=== PATIENT | male | born 1970 | race American Indian/Alaskan Native ===

== ENCOUNTER 2017-08-30 14:54 | Inpatient (IN) | payer OTHER ==
[2017-08-30 15:22] LABS: Basophils % (Auto) 0.8 % (0.0-1.8); Eosinophils # (Auto) 0.1 K/mm3 (0.0-0.4); Eosinophils % (Auto) 2.3 % (0.0-4.3); Hematocrit 43.7 % (35.5-45.6); Hemoglobin 14.6 gm/dl (11.8-15.2); Lymphocytes # (Auto) 1.2 K/mm3 (1.2-5.4); Lymphocytes % (Auto) 30.8 % (13.4-35.0); Mean Corpuscular HGB Conc 33 % (32-34); Mean Corpuscular Hemoglobin 29 pg (28-32); Mean Corpuscular Volume 86 fl (84-94); Monocytes # (Auto) 0.4 K/mm3 (0.0-0.8); Monocytes % (Auto) 10.3 % (0.0-7.3); Platelet Count 177 K/mm3 (140-440); Red Blood Count 5.08 M/mm3 (3.65-5.03); Red Cell Distribution Width 14.4 % (13.2-15.2)
--- NOTE | 2017-08-30 15:32 | Emergency Department Report ---
ED General Adult HPI - General Chief complaint: Chest Pain Stated complaint: CHEST PAIN Time Seen by Provider: 08/30/17 15:20 Source: patient Mode of arrival: Ambulatory Limitations: No Limitations - History of Present Illness Initial comments: 46-year-old male history of chest pain for 3 days on the right side across chest ,? Hurts with breathing ?somewhat sudden in onset, history of hypertension for 7 years denies tobacco or alcohol, history of sleep apnea on CPAP no cough no productive sputum questionable orthopnea, neg ett 3 yrs ago, here eval poss exertional cp, w/ risk factor,, no calf pain or swelling, no feve rno cough -: hour(s), unknown Severity scale (0 -10): 6 Consistency: intermittent Associated Symptoms: chest pain, shortness of breath, weakness. denies: confusion, cough, fever/chills, headaches, malaise, nausea/vomiting, rash, seizure, syncope - Related Data Allergies Allergy/AdvReac Type Severity Reaction Status Date / Time lisinopril AdvReac Shortness Verified 08/30/17 14:59 of Breath ED Review of Systems ROS: Stated complaint: CHEST PAIN Other details as noted in HPI Comment: All other systems reviewed and negative Constitutional: denies: diaphoresis, fever, malaise Eyes: denies: eye discharge, vision change ENT: denies: dental pain, hearing loss, epistaxis Respiratory: orthopnea, shortness of breath, SOB at rest Cardiovascular: chest pain, dyspnea on exertion, orthopnea. denies: palpitations, edema, syncope Gastrointestinal: denies: abdominal pain, nausea, vomiting, diarrhea, constipation, hematemesis, melena, hematochezia Neurological: denies: headache, weakness, numbness, paresthesias, confusion ED Past Medical Hx - Past Medical History Hx Hypertension: Yes - Surgical History Past Surgical History?: No - Social History Smoking Status: Never Smoker Substance Use Type: None ED Physical Exam - General Limitations: No Limitations General appearance: alert, anxious - Head Head exam: Present: atraumatic, normocephalic - Eye Eye exam: Present: normal appearance, PERRL, EOMI - ENT ENT exam: Present: normal exam, normal orophraynx - Neck Neck exam: Present: normal inspection. Absent: tenderness, meningismus - Respiratory Respiratory exam: Present: rhonchi. Absent: decreased breath sounds, prolonged expiratory - Cardiovascular Cardiovascular Exam: Present: regular rate, normal heart sounds. Absent: rubs, gallop - GI/Abdominal GI/Abdominal exam: Present: soft. Absent: tenderness, guarding, rebound, rigid , mass, bruit, pulsatile mass - Extremities Exam Extremities exam: Present: normal inspection, normal capillary refill, pedal edema. Absent: joint swelling, calf tenderness - Back Exam Back exam: Present: normal inspection. Absent: CVA tenderness (L), paraspinal tenderness, vertebral tenderness - Neurological Exam Neurological exam: Present: alert, oriented X3, CN II-XII intact. Absent: motor sensory deficit (pulses equal bilaterally) ED Course Vital Signs 08/30/17 08/30/17 08/30/17 14:59 15:14 15:15 Temperature 98.5 F Pulse Rate 58 L 56 L Respiratory 22 13 Rate Blood Pressure 145/96 145/91 O2 Sat by Pulse 98 99 99 Oximetry 08/30/17 08/30/17 08/30/17 15:16 15:20 15:21 Temperature 98.4 F Pulse Rate 58 L Respiratory 17 17 Rate Blood Pressure 145/91 O2 Sat by Pulse 100 99 Oximetry ED Medical Decision Making - Lab Data Result diagrams: 08/30/17 15:09 08/30/17 15:09 - EKG Data -: EKG Interpreted by Ca EKG shows normal: sinus rhythm Rate: bradycardia - EKG Data Interpretation: no acute changes 08/30/17 19:33 no acute ischemic change - Radiology Data Radiology results: report reviewed - Medical Decision Making Patient was factors with exertional chest pain with some shortness of breath questionable orthopnea some atypical however given his risk factors did discuss case with Dr. Scott for admission for further evaluation of chest pain. His last workup was a negative exercise treadmill test 3 years ago symptoms could likely represent cardiac chest pain and will need further evaluation and admission to further evaluate, pain free now , vss Critical care attestation.: If time is entered above; I have spent that time in minutes in the direct care of this critically ill patient, excluding procedure time. ED Disposition Clinical Impression: Chest pain Disposition: OP ADMIT IP TO THIS HOSP Is pt being admited?: Yes Condition: Stable Instructions: Chest Pain (ED) Time of Disposition: 19:34
[2017-08-30 15:48] LABS: BUN/Creatinine Ratio 9; Blood Urea Nitrogen 10 mg/dL (9-20); Calcium 9.3 mg/dL (8.4-10.2); Hemolysis Index 4
--- NOTE | 2017-08-30 16:51 | XRay Report ---
FINAL REPORT EXAM: XR CHEST ROUTINE 2V HISTORY: cp TECHNIQUE: Frontal and lateral chest x-ray. PRIORS: None. FINDINGS: Cardiac and mediastinal silhouette within normal limits. Lungs show mild and patchy opacities in the left lower lung. No other focal consolidation, pleural effusions or apparent pneumothorax. Bony thorax grossly unremarkable. IMPRESSION: 1. Findings which may represent left basilar atelectasis, mild infiltrate or postinflammatory change and scarring of uncertain etiology or chronicity. Correlate clinically.
[2017-08-30] MEDS ORDERED: ASPIRIN PO ONE (19:24)
[2017-08-30] MEDS ORDERED: MORPHINE IV ONE (19:27)
[2017-08-30] MEDS ORDERED: ZOFRAN ODT PO ONE (19:28)
[2017-08-30] MEDS ORDERED: TYLENOL PO PRN (22:00)
[2017-08-30] MEDS ORDERED: MORPHINE IV PRN (22:00)
[2017-08-30] MEDS ORDERED: ZOFRAN IV PRN (22:00)
[2017-08-30] MEDS ORDERED: D5NS 1,000 ML IV SCH (22:00)
[2017-08-30] MEDS ORDERED: PERCOCET 5/325 PO PRN (22:00)
[2017-08-30] MEDS ORDERED: SODIUM CHLORIDE FLUSH SYRINGE 10 ML IV PRN (22:00)
--- NOTE | 2017-08-30 22:08 | History and Physical Report ---
History of Present Illness Date of examination: 08/30/17 Date of admission: 08/30/17 19:35 Chief complaint: Chief complaint: Chest pain for 3 days-retrosternal and right-sided History of present illness: - History of Present Illness 46-year-old -[place] male with history of COPD and obstructive sleep apnea and hypertension comes in for retrosternal and right-sided chest pain sharp in nature for 3 days. Patient lifts heavy equipment. No tenderness of the chest wall as well as the patient. No shortness of breath no palpitations or diaphoresis. No exacerbating or relieving factors. No chills. No recent travel. Past Medical History Hx Hypertension: Yes - Surgical History Past Surgical History?: No - Social History Smoking Status: Never Smoker Substance Use Type: None Family history Hypertension Review of Systems ROS: Stated complaint: CHEST PAIN Other details as noted in HPI Comment: All other systems reviewed and negative Constitutional: denies: diaphoresis, fever, malaise Eyes: denies: eye discharge, vision change ENT: denies: dental pain, hearing loss, epistaxis Respiratory: orthopnea, shortness of breath, SOB at rest Cardiovascular: chest pain, dyspnea on exertion, orthopnea. denies: palpitations, edema, syncope Gastrointestinal: denies: abdominal pain, nausea, vomiting, diarrhea, constipation, hematemesis, melena, hematochezia Neurological: denies: headache, weakness, numbness, paresthesias, confusion 14 point review of systems done and otherwise negative. Medications and Allergies Allergies Allergy/AdvReac Type Severity Reaction Status Date / Time lisinopril AdvReac Shortness Verified 08/30/17 14:59 of Breath Active Meds: Active Medications Acetaminophen (Tylenol) 650 mg PO Q4H PRN PRN Reason: Pain MILD(1-3)/Fever >100.5/CASTRO Famotidine (Pepcid) 20 mg PO BID [facility] Dextrose/Sodium Chloride (D5ns) 1,000 mls @ 75 mls/hr IV DIRECT VIET Morphine Sulfate (Morphine) 2 mg IV Q4H PRN PRN Reason: Pain, Moderate (4-6) Nitroglycerin (Nitro-Bid 2%) 1 inch TP BIDNTG [facility]; Protocol Ondansetron HCl (Zofran) 4 mg IV Q8H PRN PRN Reason: Nausea And Vomiting Oxycodone/Acetaminophen (Percocet 5/325) 1 tab PO Q6H PRN PRN Reason: Pain, Moderate (4-6) Sodium Chloride (Sodium Chloride Flush Syringe 10 Ml) 10 ml IV BID VIET Sodium Chloride (Sodium Chloride Flush Syringe 10 Ml) 10 ml IV PRN PRN PRN Reason: LINE FLUSH Exam - Constitutional Vitals: Temp Pulse Resp BP Pulse Ox 98.6 F 57 L 18 145/95 97 08/30/17 20:30 08/30/17 20:30 08/30/17 20:30 08/30/17 20:30 08/30/17 20:30 General appearance: Present: no acute distress, well-nourished - EENT Eyes: Present: PERRL ENT: hearing intact, clear oral mucosa - Neck Neck: Present: supple, normal ROM - Respiratory Respiratory effort: normal Respiratory: bilateral: CTA - Cardiovascular Heart rate: 57 Rhythm: regular Heart Sounds: Present: S1 & S2. Absent: rub, click - Extremities Extremities: no ischemia, pulses intact, pulses symmetrical, No edema Peripheral Pulses: within normal limits - Abdominal General gastrointestinal: Present: soft, non-tender, non-distended, normal bowel sounds Male genitourinary: Present: normal - Rectal Rectal Exam: deferred - Integumentary Integumentary: Present: clear, warm, dry - Musculoskeletal Musculoskeletal: gait normal, strength equal bilaterally - Psychiatric Psychiatric: appropriate mood/affect, intact judgment & insight - Neurologic Neurologic: CNII-XII intact, moves all extremities - Allied Health Allied health notes reviewed: nursing, case management Results - Labs CBC & Chem 7: 08/30/17 15:09 08/30/17 15:09 Labs: Laboratory Last Values WBC 4.1 K/mm3 (4.5-11.0) L 08/30/17 15:09 RBC 5.08 M/mm3 (3.65-5.03) H 08/30/17 15:09 Hgb 14.6 gm/dl (11.8-15.2) 08/30/17 15:09 Hct 43.7 % (35.5-45.6) 08/30/17 15:09 MCV 86 fl (84-94) 08/30/17 15:09 MCH 29 pg (28-32) 08/30/17 15:09 MCHC 33 % (32-34) 08/30/17 15:09 RDW 14.4 % (13.2-15.2) 08/30/17 15:09 Plt Count 177 K/mm3 (140-440) 08/30/17 15:09 Lymph % (Auto) 30.8 % (13.4-35.0) 08/30/17 15:09 [place] % (Auto) 10.3 % (0.0-7.3) H 08/30/17 15:09 Eos % (Auto) 2.3 % (0.0-4.3) 08/30/17 15:09 Baso % (Auto) 0.8 % (0.0-1.8) 08/30/17 15:09 Lymph # 1.2 K/mm3 (1.2-5.4) 08/30/17 15:09 [place] # 0.4 K/mm3 (0.0-0.8) 08/30/17 15:09 Eos # 0.1 K/mm3 (0.0-0.4) 08/30/17 15:09 Baso # 0.0 K/mm3 (0.0-0.1) 08/30/17 15:09 Seg Neutrophils % 55.8 % (40.0-70.0) 08/30/17 15:09 Seg Neutrophils # 2.3 K/mm3 (1.8-7.7) 08/30/17 15:09 D-Dimer < 135.00 ng/mlDDU (0-234) 08/30/17 15:28 Sodium 137 mmol/L (137-145) 08/30/17 15:09 Potassium 4.0 mmol/L (3.6-5.0) 08/30/17 15:09 Chloride 97.4 mmol/L (98-107) L 08/30/17 15:09 Carbon Dioxide 30 mmol/L (22-30) 08/30/17 15:09 Anion Gap 14 mmol/L 08/30/17 15:09 BUN 10 mg/dL (9-20) 08/30/17 15:09 Creatinine 1.1 mg/dL (0.8-1.5) 08/30/17 15:09 Estimated GFR > 60 ml/min 08/30/17 15:09 BUN/Creatinine Ratio 9 % 08/30/17 15:09 Glucose 94 mg/dL (75-100) 08/30/17 15:09 Calcium 9.3 mg/dL (8.4-10.2) 08/30/17 15:09 Troponin T < 0.010 ng/mL (0.00-0.029) 08/30/17 17:39 Short CBC 08/30/17 Range/Units 15:09 WBC 4.1 L (4.5-11.0) K/mm3 Hgb 14.6 (11.8-15.2) gm/dl Hct 43.7 (35.5-45.6) % Plt Count 177 (140-440) K/mm3 BMP 08/30/17 15:09 Sodium 137 Potassium 4.0 Chloride 97.4 L Carbon Dioxide 30 BUN 10 Creatinine 1.1 Glucose 94 Calcium 9.3 Cardiac Enzymes 08/30/17 08/30/17 Range/Units 15:09 17:39 Troponin T < 0.010 < 0.010 (0.00-0.029) ng/mL - Imaging and Cardiology EKG: report reviewed (normal sinus rhythm with bradycardia and LVH by voltage criteria heart rate of 57) Assessment and Plan Advance Directives: Yes (full code) VTE prophylaxis?: Chemical Plan of care discussed with patient/family: Yes - Patient Problems (1) Chest pain Current Visit: Yes Status: Acute Qualifiers: Chest pain type: chest pain on breathing Qualified Code(s): R07.1 - Chest pain on breathing; R07.81 - Pleurodynia Plan to address problem: Acute chest pain--cardiac workup in the form of troponins serially and Lexiscan in the morning. Possible costochondritis secondary to lifting weights. There is some tenderness in the costochondral junction. Gastroesophageal esophageal reflux disease is not in the differential diagnosis (2) Hypertension Current Visit: Yes Status: Chronic Qualifiers: Hypertension type: essential hypertension Qualified Code(s): I10 - Essential (primary) hypertension Plan to address problem: Patient initiated on losartan and amlodipine. (3) Obstructive sleep apnea Current Visit: Yes Status: Chronic Plan to address problem: Initiated on CPAP at nighttime (4) DVT prophylaxis Current Visit: Yes Status: Acute Plan to address problem: On heparin
[2017-08-30] MEDS: HEPARIN SUB-Q SCH (23:20)
[2017-08-30] MEDS: PEPCID PO SCH (23:20)
[2017-08-30] MEDS: SODIUM CHLORIDE FLUSH SYRINGE 10 ML IV SCH (23:21)
[2017-08-31 05:09] LABS: Basophils % (Auto) 1.1 % (0.0-1.8); Eosinophils # (Auto) 0.1 K/mm3 (0.0-0.4); Eosinophils % (Auto) 2.7 % (0.0-4.3); Hematocrit 42.9 % (35.5-45.6); Hemoglobin 14.2 gm/dl (11.8-15.2); Lymphocytes # (Auto) 1.6 K/mm3 (1.2-5.4); Lymphocytes % (Auto) 35.7 % (13.4-35.0); Mean Corpuscular HGB Conc 33 % (32-34); Mean Corpuscular Hemoglobin 29 pg (28-32); Mean Corpuscular Volume 87 fl (84-94); Monocytes # (Auto) 0.5 K/mm3 (0.0-0.8); Platelet Count 184 K/mm3 (140-440); Red Blood Count 4.93 M/mm3 (3.65-5.03); Red Cell Distribution Width 14.6 % (13.2-15.2)
[2017-08-31 05:23] LABS: Alanine Aminotransferase 36 units/L (7-56); Albumin 4.1 g/dL (3.9-5); BUN/Creatinine Ratio 12; Blood Urea Nitrogen 13 mg/dL (9-20); Calcium 8.3 mg/dL (8.4-10.2); Hemolysis Index 8
[2017-08-31] MEDS: NITRO-BID 2% TP SCH ×2 (05:41→13:02)
[2017-08-31] MEDS ORDERED: LEXISCAN IV ONE ×2 (08:02→08:22)
[2017-08-31] MEDS: HEPARIN SUB-Q SCH (09:13)
[2017-08-31] MEDS: PEPCID PO SCH (09:13)
[2017-08-31] MEDS: SODIUM CHLORIDE FLUSH SYRINGE 10 ML IV SCH (09:14)
[2017-08-31] MEDS ORDERED: NORVASC PO SCH (10:00)
[2017-08-31] MEDS ORDERED: COZAAR PO SCH (10:00)
[2017-08-31 13:04] VITALS: BP 121/80
--- NOTE | 2017-08-31 14:17 | Discharge Summary ---
Providers - Providers Date of Admission: 08/30/17 19:35 Attending physician: VINICIO BRANDT MD Primary care physician: STORE ADMINISTRATOR Hospitalization Reason for admission: Chest pain Condition: Stable Disposition: DC-01 TO HOME OR SELFCARE Time spent for discharge: 31 minutes - Discharge Diagnoses (1) Chest pain Status: Acute Qualifiers: Chest pain type: chest pain on breathing Qualified Code(s): R07.1 - Chest pain on breathing; R07.81 - Pleurodynia (2) Hypertension Status: Chronic Qualifiers: Hypertension type: essential hypertension Qualified Code(s): I10 - Essential (primary) hypertension (3) Obstructive sleep apnea Status: Chronic Core Measure Documentation - Palliative Care Palliative Care/ Comfort Measures: Not Applicable - Core Measures Any of the following diagnoses?: none Exam - Constitutional Vitals: Temp Pulse Resp BP Pulse Ox 97.7 F 63 18 121/80 97 08/31/17 12:59 08/31/17 12:59 08/31/17 12:59 08/31/17 13:02 08/31/17 12:59 Plan Activity: no restrictions Weight Bearing Status: Full Weight Bearing Diet: low salt Follow up with: PRIMARY MD ARRON [Primary Care Provider] - 3-5 Days (Please follow at [facility] in 1-2 weeks)
== END 2017-08-31 15:07 | disposition home or self-care (01) | DRG 313 ==
LOC: ED 14:54 → 3A 19:35
PROVIDERS: ADMIT Internal Medicine; ATTEND Internal Medicine
PROC: 5A09357 Assistance with Respiratory Ventilation, Less than 24 Consecutive Hours, Continuous Positive Airway Pressure (ICD-10-PCS; principal; 2017-08-30)
DX: R07.9 Chest pain, unspecified (principal); I10 Essential (primary) hypertension; Z87.891 Personal history of nicotine dependence; Z88.6 Allergy status to analgesic agent; G47.33 Obstructive sleep apnea (adult) (pediatric)
CPT/HCPCS: 36415; 71046; 78452; 80048; 80053; 83036; 84484; 85025; 85379; 93005; 93010; 93017; 94660; 96372; A9502; J1644; J2270; J2785; J7042; Q0162